=== PATIENT | male | born 1995 | race Two or more races ===

== ENCOUNTER 2017-05-31 20:27 | Emergency (ER) | payer OTHER ==
[~2017-05-31] VITALS: Ht 185.4 cm; Wt 103.6 kg
[~2017-05-31 20:27] MED LIST: MOTRIN600 MG PO
[2017-05-31] MEDS ORDERED: MOTRIN600 MG PO (21:37)
[2017-05-31 21:51] VITALS: BP 141/93
== END 2017-05-31 21:52 | disposition home or self-care (01) ==
LOC: EME 20:27
DX: S61.230A Puncture wound without foreign body of right index finger without damage to nail, initial encounter (principal); W27.0XXA Contact with workbench tool, initial encounter; Z88.0 Allergy status to penicillin
CPT/HCPCS: 73130; 99281; 99284

== ENCOUNTER 2018-03-11 21:25 | Emergency (ER) | payer OTHER ==
[~2018-03-11] VITALS: Ht 185.4 cm; Wt 106.8 kg
[2018-03-11] MEDS ORDERED: NAPROSYN500 MG PO (22:38)
[2018-03-11 22:50] VITALS: BP 158/93
== END 2018-03-11 22:51 | disposition home or self-care (01) ==
LOC: EME 21:25
DX: S93.401A Sprain of unspecified ligament of right ankle, initial encounter (principal); W14.XXXA Fall from tree, initial encounter; Z88.0 Allergy status to penicillin
CPT/HCPCS: 73610; 99281; 99283